=== PATIENT | female | born 1960 | race Caucasian/White ===

== ENCOUNTER → 2016-04-08 | Outpatient (CLI) | payer OTHER | LOC: M WUC 10:46 | PROVIDERS: ATTEND Family Medicine | DX: Z11.59 Encounter for screening for other viral diseases (principal) ==

== ENCOUNTER → 2016-05-07 | Outpatient (CLI) | payer OTHER ==
[~2016-05-07] MED LIST: CLAR1TAB2 PO; LOSA100T36 PO; MOME50SP; MULT1TAB10 PO; TRAM50TA2 PO
[2016-05-07 16:45] LABS: CREATININE FOR GFR 1.08 MG/DL (0.55-1.02); GLOMERULAR FILTRATION RATE 55.5 (>51); PHOSPHORUS LEVEL 3.7 MG/DL (2.5-4.9); POTASSIUM SERUM 4.5 MEQ/L (3.5-5.1)
== END ==
LOC: M WUC 13:55
PROVIDERS: ATTEND Dentist Oral and Maxillofacial Surgery
DX: Z01.812 Encounter for preprocedural laboratory examination (principal)

== ENCOUNTER → 2016-05-15 | Day surgery (SDC) | payer OTHER ==
[~2016-05-15] VITALS: Ht 162.6 cm; Wt 93.0 kg
[~2016-05-15] MED LIST changes: +AMOX500C PO; +HYDR-3713 PO; +HYDROmorphone HCL 2 MG/ML 1ML VIAL (J1170) As Ordered ONE; +IBUP600T26 PO; +LIDOCAINE 2% INJ 100 MG/5 ML SDV (FOR ANES.) As Ordered ONE; +LIDOCAINE 2% W/ EPINEPHRINE 1.7 ML DENTAL INJ As Ordered ONE; +LR 1,000 ML IV SCH; +METOCLOPRAMIDE INJ 10MG/2ML VIAL (J2765) IV PRN; +MIDAZOLAM INJ 2 MG/2 ML VIAL (J2250) As Ordered ONE; +OMEP40CA2 PO; +ONDANSETRON 4MG/2ML VIAL (J2405) As Ordered ONE; +ONDANSETRON 4MG/2ML VIAL (J2405) IV PRN; +PERCOCET 5MG/325MG TAB PO PRN; +PHENYLEPHRINE 0.5% NASAL SPRAY 15 ML As Ordered ONE; +PROPOFOL 200 MG/20 ML VIAL As Ordered ONE; +ROCURONIUM BROMIDE 50 MG/5 ML VIAL As Ordered ONE; +SUCCINYLCHOLINE 100 MG/5 ML SYRINGE (J0330) As Ordered ONE; +dexameTHASONE 4 MG/ML 1ML VIAL (J1100) As Ordered ONE; +fentaNYL 100 MCG/2 ML INJECTION (J3010) As Ordered ONE; +fentaNYL 100 MCG/2 ML INJECTION (J3010) IV PRN
[2016-05-15 16:30] VITALS: BP 170/88
--- NOTE | 2016-05-17 09:04 | RO ---
DATE OF PROCEDURE: 05/15/2016 PREOPERATIVE DIAGNOSES: Bony impacted tooth #17, fully bony. Malposed tooth # 18 and a dentigerous cyst associated with impacted tooth #17, as well as in line with tooth #18. POSTOPERATIVE DIAGNOSES: Bony impacted tooth #17, fully bony. Malposed tooth #18 and a dentigerous cyst associated with impacted tooth #17, as well as in line with tooth #18. PROCEDURE: 1. Surgical removal of tooth #18. 2. Coronectomy of impacted tooth #17. 3. Enucleation of a cystic lesion in the area between 17 and 18. SURGEON: Alfa Castellon DDS ARMED GUARD: ANESTHESIA: General nasal endotracheal. INDICATIONS: The patient is a 55-year-old female referred by the general dentist for evaluation and treatment of a cyst of the left mandible associated with impacted tooth 17 and affecting adjacent tooth #18. The patient had previously had an intraoral biopsy of the lesion in the office setting, which was noted to be a dentigerous cyst. The patient is now for definitive treatment of the same. NARRATIVE SUMMARY: The patient was brought to the operating room (OR) per anesthesia and placed supine upon the OR table wherein general nasal endotracheal anesthetic was undertaken without difficulty. After the usual sterile prep and drape for an intraoral procedure was performed, a throat pack was placed. 2% Xylocaine with 1:100,000 epinephrine for approximately 1.5 mL was infiltrated to the area of the left mandible in the area between 17 and 18. A #15-scalpel blade was then used to make a full thickness reversal buccal hockey stick mucoperiosteal incision and carried from the left external oblique ridge forward to the area of the second premolar. A full thickness flap was then raised with the periosteal elevator exposing the buccal bone support. Tooth #18 was then elevated and delivered. The crown and the distal root was removed. The mesial root fractured and was secondarily removed with elevator technique. The area was copiously examined and buccal osteotomy was performed as necessary for exposure of the remaining cystic lesion around the impacted tooth 17 in line forward and underneath the area of tooth 18. The cyst was noted to be fairly thin walled and enucleated with curettes without major difficulty. The area of the impacted tooth crown was then exposed with Moraes drill and copious sterile saline carefully. The area was copiously irrigated as this was performed. The tooth was lying very deeply in the bone with an anterior and inferior Clint and therefore after evaluation of the area and the amount of bone that was necessary to remove, it was felt necessary to just perform a coronectomy of the tooth to avoid the damage to the inferior canal, as well as potential for risk of fracture. This was all discussed previously with the patient preoperatively as well. The tooth crown was then sectioned with the Moraes drill and with copious saline irrigation it was removed. The area was copiously irrigated and was again curetted and all areas of remaining cyst were removed and there was no obvious evidence of exposure of the inferior alveolar canal or evidence of any bone fractures. The lingual cortex was noted to be intact. At the termination of the procedure, the area was examined after copious sterile irrigation and closed with Gelfoam and #3-0 gut interrupted sutures for hemostasis. At the termination of the procedure, the oropharynx was inspected and found to be free of debris. The throat pack was removed. The patient was awakened per anesthesia. The estimated blood loss (EBL) was approximately 30 mL. Fluids of 1300 mL in crystalloid solution. The needle and sponge count was correct. SPECIMENS: The teeth were sent for identification only, crown of tooth #17, as well as the whole tooth of #18. The cystic lesion was sent for microscopic analysis to pathology. DISPOSITION: The patient was extubated in the operating room and taken to the recovery room breathing spontaneously in stable condition. ANGELICA
== END | disposition home or self-care (01) ==
LOC: M SDC 10:27
PROVIDERS: ATTEND Dentist Oral and Maxillofacial Surgery
DX: K01.1 Impacted teeth (principal); M26.30 Unspecified anomaly of tooth position of fully erupted tooth or teeth; K09.0 Developmental odontogenic cysts; I10 Essential (primary) hypertension; K21.9 Gastro-esophageal reflux disease without esophagitis; Z78.0 Asymptomatic menopausal state; Z98.51 Tubal ligation status; Z87.891 Personal history of nicotine dependence; Z79.899 Other long term (current) drug therapy
CPT/HCPCS: 88300; 88305; D7240; D7251; D7451; J0330; J1100; J1170; J2250; J2405; J3010

== ENCOUNTER → 2016-08-24 | Outpatient (CLI) | payer OTHER ==
[~2016-08-24] MED LIST changes: -HYDROmorphone HCL 2 MG/ML 1ML VIAL (J1170) As Ordered ONE; -LIDOCAINE 2% INJ 100 MG/5 ML SDV (FOR ANES.) As Ordered ONE; -LIDOCAINE 2% W/ EPINEPHRINE 1.7 ML DENTAL INJ As Ordered ONE; -LR 1,000 ML IV SCH; -METOCLOPRAMIDE INJ 10MG/2ML VIAL (J2765) IV PRN; -MIDAZOLAM INJ 2 MG/2 ML VIAL (J2250) As Ordered ONE; -ONDANSETRON 4MG/2ML VIAL (J2405) As Ordered ONE; -ONDANSETRON 4MG/2ML VIAL (J2405) IV PRN; -PERCOCET 5MG/325MG TAB PO PRN; -PHENYLEPHRINE 0.5% NASAL SPRAY 15 ML As Ordered ONE; -PROPOFOL 200 MG/20 ML VIAL As Ordered ONE; -ROCURONIUM BROMIDE 50 MG/5 ML VIAL As Ordered ONE; -SUCCINYLCHOLINE 100 MG/5 ML SYRINGE (J0330) As Ordered ONE; -dexameTHASONE 4 MG/ML 1ML VIAL (J1100) As Ordered ONE; -fentaNYL 100 MCG/2 ML INJECTION (J3010) As Ordered ONE; -fentaNYL 100 MCG/2 ML INJECTION (J3010) IV PRN
[2016-08-24 10:53] LABS: BASO % 1.1 % (0.0-1.0); EOS # 0.1 K/mm3 (0.0-0.50); EOS % 1.8 % (0.0-3.0); LARGE UNSTAINED CELL # 0.1 K/mm3 (0.0-0.4); LARGE UNSTAINED CELL % 2.5 % (0.0-4.0); LYMPH # 1.4 K/mm3 (1.5-4.5); LYMPH % 32.8 % (24.0-44.0); MEAN CORPUSCULAR HEMOGLOBIN 34.4 pg (27.0-33.0); MEAN CORPUSCULAR HGB CONC 34.8 g/dl (32.0-36.5); MEAN CORPUSCULAR VOLUME 98.9 fl (80.0-96.0); MONO # 0.3 K/mm3 (0.0-0.8); MONO % 8.3 % (0.0-5.0); NEUTROPHILS # 2.2 K/mm3 (1.8-7.7); NEUTROPHILS % 53.6 % (36.0-66.0); PLATELET COUNT, AUTOMATED 184 k/mm3 (150-450)
[2016-08-24 12:23] LABS: ALBUMIN 3.9 GM/DL (3.2-5.2); ALBUMIN/GLOBULIN RATIO 1.39 (1.00-1.93); BILIRUBIN,TOTAL 0.4 MG/DL (0.2-1.0); CALCIUM LEVEL 8.7 MG/DL (8.5-10.1); CREATININE FOR GFR 1.03 MG/DL (0.55-1.02); GLOMERULAR FILTRATION RATE 58.6 (>51); POTASSIUM SERUM 4.4 MEQ/L (3.5-5.1); TOTAL PROTEIN 6.7 GM/DL (6.4-8.2)
== END ==
LOC: M WUC 08:35
PROVIDERS: ATTEND Family Medicine
DX: I10 Essential (primary) hypertension (principal)

== ENCOUNTER → 2016-12-21 | Outpatient (CLI) | payer OTHER ==
[~2016-12-21] MED LIST changes: +IBUP-1022 PO; -IBUP600T26 PO
[2016-12-21 13:40] LABS: BASO % 0.9 % (0.0-1.0); EOS # 0.1 10^3/uL (0.0-0.50); EOS % 1.1 % (0.0-3.0); IMMATURE GRANULOCYTE % 0.2 % (0-0); LYMPH # 1.4 10^3/uL (1.5-4.5); LYMPH % 31.4 % (24.0-44.0); MEAN CORPUSCULAR HEMOGLOBIN 33.9 pg (27.0-33.0); MEAN CORPUSCULAR HGB CONC 34.1 g/dl (32.0-36.5); MEAN CORPUSCULAR VOLUME 99.5 fl (80.0-96.0); MONO # 0.5 10^3/uL (0.0-0.8); MONO % 10.8 % (0.0-5.0); NEUTROPHILS # 2.5 10^3/uL (1.8-7.7); NEUTROPHILS % 55.6 % (36.0-66.0); PLATELET COUNT, AUTOMATED 156 10^3/uL (150-450); RED CELL DISTRIBUTION WIDTH 11.8 % (11.5-14.5); WHITE BLOOD COUNT 4.6 10^3/uL (4.0-10.0)
[2016-12-21 18:15] LABS: ALBUMIN 3.9 GM/DL (3.2-5.2); ALBUMIN/GLOBULIN RATIO 1.11 (1.00-1.93); BILIRUBIN,TOTAL 0.5 MG/DL (0.2-1.0); CALCIUM LEVEL 6.1 MG/DL (8.5-10.1); CREATININE FOR GFR 1.19 MG/DL (0.55-1.02); GLOMERULAR FILTRATION RATE 49.6 (>51); TOTAL PROTEIN 7.4 GM/DL (6.4-8.2)
[2016-12-21 18:53] LABS: POTASSIUM SERUM 6.4 MEQ/L (3.5-5.1)
== END ==
LOC: M WUC 11:43
PROVIDERS: ATTEND Family Medicine
DX: R11.2 Nausea with vomiting, unspecified (principal)

== ENCOUNTER → 2016-12-22 | Outpatient (CLI) | payer OTHER ==
[2016-12-22 20:29] LABS: CREATININE FOR GFR 1.21 MG/DL (0.55-1.02); GLOMERULAR FILTRATION RATE 48.7 (>51)
[2016-12-22 21:13] LABS: CALCIUM LEVEL 8.9 MG/DL (8.5-10.1); POTASSIUM SERUM 4.1 MEQ/L (3.5-5.1)
== END ==
LOC: M WUC 17:37
PROVIDERS: ATTEND Family Medicine
DX: E87.5 Hyperkalemia (principal); E83.50 Unspecified disorder of calcium metabolism

== ENCOUNTER → 2017-01-18 | Outpatient (CLI) | payer OTHER ==
--- NOTE | 2017-01-18 10:13 | REPMRS ---
Patient History The patient states she had a clinical breast exam in 11/22 Patient is postmenopausal. No known family history of cancer. Digital Woman Screen Mammo: January 18, 2017 - Exam #: [id number] Bilateral CC and MLO view(s) were taken. Technologist: Cherrie Melgar, Technologist Prior study comparison: December 10, 2015, digital woman screen mammo performed at [facility] to [facility]. November 05, 2014, digital woman screen mammo performed at [facility] to [facility]. FINDINGS: There are scattered fibroglandular densities. There has been no change in the appearance of the mammogram from the prior studies. There is a mild amount of residual fibroglandular tissue which is fairly symmetric. There is no interval development of dominant mass, architectural distortion, or clustered microcalcification suggestive of malignancy. ASSESSMENT: BI-RADS/ACR category 1 mammogram. Negative. Recommendation Routine screening mammogram in 1 year (for women over age 40). This mammogram was interpreted with the aid of an FDA-approved computer-aided dectection system. Electronically Signed By: Jim Le MD 01/18/17 1012
== END ==
LOC: M WHC 09:39
PROVIDERS: ATTEND Family Medicine
DX: Z12.31 Encounter for screening mammogram for malignant neoplasm of breast (principal); Z78.0 Asymptomatic menopausal state

== ENCOUNTER 2017-01-21 09:25 | Emergency (ER) | payer OTHER ==
[~2017-01-21] VITALS: Ht 162.6 cm; Wt 96.9 kg
[2017-01-21] MEDS ORDERED: AMOX875T PO (09:35)
[2017-01-21] MEDS ORDERED: ALBUTEROL SULFATE 2.5 MG/0.5 ML INH NEB SOLN NEB ONE (10:15)
--- NOTE | 2017-01-21 10:45 | REP ---
Clinical: Cough and shortness of breath . Comparison: 06/24/2005 . Technique: PA and lateral. Findings: The mediastinum and cardiac silhouette are normal. Perihilar and left infrahilar atelectasis cannot be excluded. No focal consolidation, effusion, or pneumothorax. The skeletal structures are intact and normal. Impression: 1. Perihilar atelectasis suggested. Signed by Luis Armando Olmedo MD 01/21/2017 10:37 A
[2017-01-21] MEDS ORDERED: DOXY100C37 PO ×2 (11:17→11:23)
[2017-01-21] MEDS ORDERED: PRED20TA PO ×2 (11:18→11:23)
[2017-01-21] MEDS ORDERED: PROAAER10 INH ×2 (11:19→11:23)
[2017-01-21 11:28] VITALS: BP 165/78
== END 2017-01-21 11:30 | disposition home or self-care (01) ==
LOC: M ED 09:25
DX: J20.9 Acute bronchitis, unspecified (principal); I10 Essential (primary) hypertension; K21.9 Gastro-esophageal reflux disease without esophagitis; Z79.899 Other long term (current) drug therapy; Z87.891 Personal history of nicotine dependence

== ENCOUNTER 2017-03-10 18:33 | Emergency (ER) | payer OTHER ==
[2017-03-10] MEDS: DERMABOND TOPICAL SKIN ADHESIVE TOP (22:16)
== END 2017-03-10 23:13 | disposition home or self-care (01) ==
LOC: M ED 18:33
DX: S61.011A Laceration without foreign body of right thumb without damage to nail, initial encounter (principal); W25.XXXA Contact with sharp glass, initial encounter; Y92.009 Unspecified place in unspecified non-institutional (private) residence as the place of occurrence of the external cause; Y93.G1 Activity, food preparation and clean up; Y99.8 Other external cause status; I10 Essential (primary) hypertension; K21.9 Gastro-esophageal reflux disease without esophagitis; Z79.899 Other long term (current) drug therapy; Z98.890 Other specified postprocedural states; Z87.891 Personal history of nicotine dependence
CPT/HCPCS: 73140

== ENCOUNTER 2017-07-20 20:45 | Emergency (ER) | payer OTHER ==
[2017-07-20] MEDS: predniSONE 20 MG TAB PO (21:46)
[2017-07-20] MEDS: ALBUTEROL SULFATE 2.5 MG/0.5 ML INH NEB SOLN NEB (22:03)
== END 2017-07-20 22:40 | disposition home or self-care (01) ==
LOC: M ED 20:45
DX: J20.9 Acute bronchitis, unspecified (principal); I10 Essential (primary) hypertension; K21.9 Gastro-esophageal reflux disease without esophagitis; Z79.899 Other long term (current) drug therapy; Z87.891 Personal history of nicotine dependence
CPT/HCPCS: 71046

== ENCOUNTER → 2018-07-07 | Outpatient (CLI) | payer OTHER ==
[~2018-07-07] MED LIST changes: +ALBU83IN INH; +AMOX875T PO; +DOXY100C37 PO; -LOSA100T36 PO; +LOSA100T50 PO; +MUCI600T37 PO; +PRED20TA PO; +PROAAER10 INH; +TESS100C PO
--- NOTE | 2018-07-07 11:21 | REPMRS ---
Patient History The patient states she has not had a clinical breast exam in over a year. No known family history of cancer. 3D TOMOSYNTHESIS WAS PERFORMED. Digital Woman Screen Mammo: July 07, 2018 - Exam #: [id number] Bilateral CC and MLO view(s) were taken. Technologist: Cherrie Melgar, Technologist Prior study comparison: January 18, 2017, digital woman screen mammo performed at [facility]. December 10, 2015, digital woman screen mammo performed at [facility]. FINDINGS: There are scattered fibroglandular densities. There is no evidence of cancer on this mammogram. Small foci of fat necrosis are seen in the lateral right breast. Assessment: BI-RADS/ACR category 2 mammogram. Benign Findings. Recommendation Routine screening mammogram of both breasts in 1 year (for women over age 40). This mammogram was interpreted with the aid of an FDA-approved computer-aided dectection system. Electronically Signed By: Jim Le MD 07/07/18 1121
== END ==
LOC: M WHC 07:42
PROVIDERS: ATTEND Family Medicine
DX: Z12.31 Encounter for screening mammogram for malignant neoplasm of breast (principal)

== ENCOUNTER → 2018-09-21 | Outpatient (REF) | payer OTHER ==
[~2018-09-21] MED LIST changes: +FLON1SPR; +GNP1000T11 PO; +MIGRTAB PO; +VITATAB73 PO; +vitamin a PO
== END ==
LOC: M SFHCLERA 11:07
PROVIDERS: ATTEND Nurse Practitioner Family
DX: J02.9 Acute pharyngitis, unspecified (principal)

== ENCOUNTER 2018-10-03 06:35 | Day surgery (SDC) | payer OTHER ==
[~2018-10-03] VITALS: Ht 162.6 cm; Wt 87.1 kg
[2018-10-03] MEDS ORDERED: NS 1,000 ML IV ONE (07:45)
[2018-10-03] MEDS ORDERED: PROPOFOL 200 MG/20 ML VIAL As Ordered ONE ×2 (08:02→08:28)
--- NOTE | 2018-10-03 08:35 | ROOR ---
Patient Name: Jordan Costa Procedure Date: 10/03/2018 7:27 AM Date of : 1960 Age: 58 Room: [facility] Gender: Female Note Status: Finalized Procedure: Colonoscopy Indications: Screening for colorectal malignant neoplasm Providers: Tyler PAGE MD Referring MD: Angie Gupta MD Requesting Provider: Medicines: Monitored Anesthesia Care Complications: No immediate complications. Procedure: Pre-Anesthesia Assessment: - The heart rate, respiratory rate, oxygen saturations, blood pressure, adequacy of pulmonary ventilation, and response to care were monitored throughout the procedure. The Colonoscope was introduced through the anus and advanced to the terminal ileum, with identification of the appendiceal orifice and IC valve. The colonoscopy was performed without difficulty. The patient tolerated the procedure well. The quality of the bowel preparation was good. Findings: The perianal and digital rectal examinations were normal. Four sessile polyps were found in the ascending colon and cecum. The polyps were 5 to 6 mm in size. These polyps were removed with a cold snare. Resection and retrieval were complete. A 8 mm polyp was found in the splenic flexure. The polyp was sessile. The polyp was removed with a piecemeal technique using a cold snare. Resection and retrieval were complete. A 5 mm polyp was found in the sigmoid colon. The polyp was sessile. The polyp was removed with a cold snare. Resection and retrieval were complete. Mild sigmoid diverticulosis and small internal hemorrhoids. No additional abnormalities were found on retroflexion. Impression: - Four 5 to 6 mm polyps in the ascending colon and in the cecum, removed with a cold snare. Resected and retrieved. - One 8 mm polyp at the splenic flexure, removed piecemeal using a cold snare. Resected and retrieved. - One 5 mm polyp in the sigmoid colon, removed with a cold snare. Resected and retrieved. - Mild sigmoid diverticulosis and small internal hemorrhoids. Recommendation: - Repeat colonoscopy in 3 years for surveillance. - Telephone endoscopist for pathology results in 2 weeks. Tyler Page MD Tyler PAGE MD 10/03/2018 8:34:51 AM Electronically signed by Tyler PAGE MD Number of Addenda: 0 Note Initiated On: 10/03/2018 7:27 AM Estimated Blood Loss: Estimated blood loss: none.
[2018-10-03 09:00] VITALS: BP 159/87
== END 2018-10-03 09:04 | disposition home or self-care (01) ==
LOC: M OPP 06:35
PROVIDERS: ATTEND Internal Medicine Gastroenterology
DX: Z12.11 Encounter for screening for malignant neoplasm of colon (principal); D12.2 Benign neoplasm of ascending colon; D12.0 Benign neoplasm of cecum; D12.3 Benign neoplasm of transverse colon; D12.5 Benign neoplasm of sigmoid colon; K57.30 Diverticulosis of large intestine without perforation or abscess without bleeding; K64.8 Other hemorrhoids; G43.909 Migraine, unspecified, not intractable, without status migrainosus; I10 Essential (primary) hypertension; K21.9 Gastro-esophageal reflux disease without esophagitis; R01.1 Cardiac murmur, unspecified; Z78.0 Asymptomatic menopausal state; Z87.891 Personal history of nicotine dependence; Z79.899 Other long term (current) drug therapy

== ENCOUNTER → 2019-10-23 | Outpatient (CLI) | payer OTHER ==
[~2019-10-23] MED LIST changes: -OMEP40CA2 PO; +OMEP40CA97 PO
--- NOTE | 2019-11-16 10:53 | REPMRS ---
Patient History The patient states she had a clinical breast exam in October 2019. Patient is postmenopausal. No known family history of cancer. Digital Woman Screen Mammo: October 23, 2019 - Exam #: [id number] Bilateral CC and MLO view(s) were taken. Technologist: Ivelisse Griffith Technologist Prior study comparison: July 07, 2018, bilateral digital woman screen mammo performed at [facility]. January 18, 2017, digital woman screen mammo performed at [facility]. December 10, 2015, digital woman screen mammo performed at [facility]. FINDINGS: The breast tissue is almost entirely fat. The Volpara volumetric breast density category is: A. There has been no change in the appearance of the mammogram from the prior studies. There is no interval development of dominant mass, architectural distortion, or grouped microcalcification typical of malignancy. 3-D tomosynthesis shows no additional findings. Assessment: BI-RADS/ACR category 1 mammogram. Negative Mammogram. Recommendation Routine screening mammogram of both breasts in 1 year (for women over age 40). This patient's Lifetime Breast Cancer RIsk is estimated at 6.4 %. This mammogram was interpreted with the aid of an FDA-approved computer-aided dectection system. Electronically Signed By: Haresh Silveira MD 11/16/19 [id number]
== END ==
LOC: M WHC 17:45
PROVIDERS: ATTEND Nurse Practitioner
DX: Z12.31 Encounter for screening mammogram for malignant neoplasm of breast (principal); Z78.0 Asymptomatic menopausal state

== ENCOUNTER → 2020-07-31 | Outpatient (CLI) | payer OTHER ==
[2020-07-31 11:26] LABS: BASO % 0.8 % (0.0-1.0); EOS # 0.1 10^3/uL (0.0-0.5); EOS % 2.4 % (0.0-3.0); HEMATOCRIT 39.1 % (36.0-47.0); HEMOGLOBIN 13.1 g/dl (12.0-15.5); LYMPH # 1.5 10^3/uL (1.5-5.0); LYMPH % 30.6 % (24.0-44.0); MEAN CORPUSCULAR HEMOGLOBIN 33.9 pg (27.0-33.0); MEAN CORPUSCULAR HGB CONC 33.5 g/dl (32.0-36.5); MONO # 0.5 10^3/uL (0.0-0.8); MONO % 10.2 % (2.0-8.0); NEUTROPHILS # 2.7 10^3/uL (1.5-8.5); PLATELET COUNT, AUTOMATED 159 10^3/uL (150-450); RED BLOOD COUNT 3.87 10^6/uL (4.00-5.40); WHITE BLOOD COUNT 4.9 10^3/uL (4.0-10.0)
[2020-07-31 12:41] LABS: ALBUMIN 4.1 GM/DL (3.2-5.2); BILIRUBIN,TOTAL 0.5 MG/DL (0.2-1.0); CALCIUM LEVEL 9.6 MG/DL (8.8-10.2); CREATININE FOR GFR 1.2 MG/DL (0.55-1.30); FREE T4 0.91 NG/DL (0.76-1.46); GLOMERULAR FILTRATION RATE 48.5 (>45); POTASSIUM SERUM 4.6 MEQ/L (3.5-5.1); THYROID STIMULATING HORMONE 1.64 uIU/ML (0.358-3.740); TOTAL PROTEIN 7.5 GM/DL (6.4-8.2)
== END ==
LOC: M LAB 10:49
PROVIDERS: ATTEND Internal Medicine Gastroenterology
DX: R11.2 Nausea with vomiting, unspecified (principal)

== ENCOUNTER → 2020-07-31 | Outpatient (REF) | payer OTHER | LOC: M LAB REF 17:57 | PROVIDERS: ATTEND Internal Medicine Gastroenterology | DX: R11.2 Nausea with vomiting, unspecified (principal) ==

== ENCOUNTER → 2020-08-10 | Outpatient (REF) | payer OTHER ==
[2020-08-10 17:40] LABS: APPEARANCE, URINE CLEAR (CLEAR); BACTERIA, URINE AUTO NEGATIVE (NEGATIVE); BILIRUBIN, URINE AUTO NEGATIVE (NEGATIVE); BLOOD, URINE BLOOD 3+ (NEGATIVE); COLOR, URINE STRAW (YELLOW); GLUCOSE, URINE (UA) AUTO NEGATIVE (NEGATIVE); KETONE, URINE AUTO NEGATIVE (NEGATIVE); LEUKOCYTE ESTERASE, URINE AUTO 2+ (NEGATIVE); NITRITE, URINE AUTO NEGATIVE (NEGATIVE); PROTEIN, URINE AUTO NEGATIVE (NEGATIVE); RBC, URINE AUTO 1 /HPF (0-3); SPECIFIC GRAVITY URINE AUTO 1.004 (1.002-1.035); SQUAMOUS EPITHELIAL CELL UR AU 0 /HPF (0-6); UROBILINOGEN, URINE AUTO 0.2 mg/dL (0.0-2.0); WBC, URINE AUTO 31 /HPF (0-3)
== END ==
LOC: M LAB REF 17:12
PROVIDERS: ATTEND Physician Assistant Medical
DX: R30.0 Dysuria (principal)

== ENCOUNTER → 2020-09-16 | Outpatient (CLI) | payer OTHER ==
[~2020-09-16] MED LIST changes: -DOXY100C37 PO; +DOXY1CAP62 PO; +OMEP40CA4 PO; -OMEP40CA97 PO
--- NOTE | 2020-09-17 08:06 | REP ---
INDICATION: GB DZ NAUSEA. COMPARISON: Comparison sonography 11/21/2019.. TECHNIQUE/RADIOTRACER AND DOSE: 6.6 mCi of Technetium-99m mebrofenin was injected and sequential anterior images are acquired. 65 minutes after the mebrofenin injection, the patient consumed 8 ounces Ensure and an additional 60 minutes of imaging was acquired. Regions of interest are plotted around the gallbladder. FINDINGS: The initial hepatocellular parenchymal uptake phase is normal and homogeneous. Intra- and extra-hepatic bile ducts are labeled by the 10-minute image. The gallbladder is first labeled on the 20-minute image. There is normal washout from the liver parenchyma into the gallbladder and small intestine on subsequent images. The gallbladder ejection fraction is 66%. Values greater than 35% are considered normal with this technique. IMPRESSION: Normal hepatobiliary scan and normal gallbladder ejection fraction. <Electronically signed by Haresh Silveira > 09/17/20 0802
== END ==
LOC: M RAD 07:42
PROVIDERS: ATTEND Internal Medicine Gastroenterology
DX: K82.9 Disease of gallbladder, unspecified (principal); R11.2 Nausea with vomiting, unspecified
CPT/HCPCS: 78227; A9537

== ENCOUNTER 2020-10-25 09:36 | Day surgery (SDC) | payer OTHER ==
[~2020-10-25] VITALS: Ht 162.6 cm; Wt 87.5 kg
[~2020-10-25 09:36] MED LIST changes: +CETI5SOL3 PO; +NS 1,000 ML IV ONE
[2020-10-25] MEDS ORDERED: DICY10CA13 PO (10:01)
[2020-10-25] MEDS ORDERED: RA K500C PO (10:01)
[2020-10-25] MEDS ORDERED: VITATAB47 PO (10:01)
[2020-10-25] MEDS ORDERED: propofoL 200 MG/20 ML VIAL As Ordered ONE (11:05)
[2020-10-25] MEDS ORDERED: LIDOCAINE 2% JELLY 5ML TUBE As Ordered ONE (11:05)
[2020-10-25] MEDS ORDERED: fentaNYL 100 MCG/2 ML INJECTION (J3010) As Ordered ONE (11:06)
--- NOTE | 2020-10-25 11:20 | ROOR ---
Patient Name: Jordan Costa Procedure Date: 10/25/2020 11:01 AM Date of : 1960 Age: 60 Room: [facility] Gender: Female Note Status: Finalized Procedure: Upper GI endoscopy Indications: Abdominal pain, Nausea Providers: Tyler Montano MD Referring MD: SANTOS JONES DO Requesting Provider: Medicines: Monitored Anesthesia Care Complications: No immediate complications. Procedure: Pre-Anesthesia Assessment: - The heart rate, respiratory rate, oxygen saturations, blood pressure, adequacy of pulmonary ventilation, and response to care were monitored throughout the procedure. The Endoscope was introduced through the mouth, and advanced to the second part of duodenum. The upper GI endoscopy was accomplished without difficulty. The patient tolerated the procedure well. Findings: The examined esophagus was normal. Scattered mild inflammation characterized by erythema and granularity was found in the gastric antrum. Biopsies were taken with a cold forceps for histology. The exam of the stomach was otherwise normal. The examined duodenum was normal. Impression: - Normal esophagus. - Gastritis. Biopsied. - Normal examined duodenum. Recommendation: - Use Prilosec (omeprazole) 40 mg PO daily. - Telephone endoscopist for pathology results in 2 weeks. Procedure Code(s): --- Professional --- 34410, Esophagogastroduodenoscopy, flexible, transoral; with biopsy, single or multiple Diagnosis Code(s): --- Professional --- R11.0, Nausea R10.9, Unspecified abdominal pain K29.70, Gastritis, unspecified, without bleeding CPT copyright 2019 [employer]. All rights reserved. The codes documented in this report are preliminary and upon tobacco sorter review may be revised to meet current compliance requirements. Tyler Montano MD Tyler Montano MD 10/25/2020 11:20:09 AM Electronically signed by Tyler Montano MD Number of Addenda: 0 Note Initiated On: 10/25/2020 11:01 AM Estimated Blood Loss: Estimated blood loss: none.
[2020-10-25 11:43] VITALS: BP 159/75
== END 2020-10-25 11:45 | disposition home or self-care (01) ==
LOC: M OPP 09:36
PROVIDERS: ATTEND Internal Medicine Gastroenterology
DX: K29.70 Gastritis, unspecified, without bleeding (principal); R11.0 Nausea; R10.9 Unspecified abdominal pain; Z79.899 Other long term (current) drug therapy; Z88.8 Allergy status to other drugs, medicaments and biological substances; Z80.41 Family history of malignant neoplasm of ovary
CPT/HCPCS: 43239; 88305; J3010

== ENCOUNTER → 2020-12-02 | Outpatient (CLI) | payer OTHER ==
[~2020-12-02] MED LIST changes: +DICY10CA13 PO; -NS 1,000 ML IV ONE; +RA K500C PO; +VITATAB47 PO
--- NOTE | 2020-12-02 09:30 | REP ---
INDICATION: ENCTR SCREEN MAMMO FOR MALIGNANT NEOPLASM OF BREAST. COMPARISON: Multiple TECHNIQUE: Digital screening mammography was carried out bilaterally in the CC and MLO projections using both 2D and 3D modalities and compared to the prior exams By history, the patient has no complaints of a palpable breast abnormality or other significant breast complaints. FINDINGS: The breasts are unchanged in size and shape. Scattered dense heterogenous fibroglandular elements are again seen bilaterally. In the upper outer quadrant of the left breast there is a potential pepe asymmetric density. No other suspicious features are seen in either breast. There are stable benign calcifications. There is no skin thickening or nipple retraction. The Volpara volumetric breast density pattern is b. IMPRESSION: BIRADS/ACR category 0 mammogram. There is a potential pepe asymmetric density seen in the left breast upper outer quadrant for which diagnostic digital DBT spot compression views are recommended in the CC and MLO projections along with diagnostic ultrasonography if necessary. This patient's Tyrer-Cuzick lifetime breast cancer risk assessment score is 6.2%. This mammogram was interpreted with the aid of an FDA-approved computer-aided detection system. The patient states she had a clinical breast exam in October 2020. The patient letter being requested is M0. RECOMMENDATION: As above <Electronically signed by Mario Sofia > 12/02/20 1792
--- NOTE | 2020-12-02 09:44 | DEXAMM ---
INDICATION: SCREENING FOR BONE DENSITY. COMPARISON: None. TECHNIQUE: Bone density was measured using dual-energy x-ray absorptionmetry (DEXA). FINDINGS: AP SPINE L1-L4 BMD 1.257 g/cm2 Young Adult T-Score 0.5 Age Matched Z-Score 1.9. LT FEMUR, TOTAL BMD 1.089 g/cm2 Young Adult T-Score 0.6 Age Matched Z-Score 1.7. LT NECK BMD 1.017 g/cm2 Young Adult T-Score -0.2 Age Matched Z-Score 1.2. RT FEMUR, TOTAL BMD 1.111 g/cm2 Young Adult T-Score 0.8 Age Matched Z-Score 1.9. RT NECK BMD 0.971 g/cm2 Young Adult T-Score -0.5 Age Matched Z-Score 0.9. IMPRESSION: There is normal bone density of the spine. There is normal bone density of the left hip. There is normal bone density of the right hip. FOLLOW-UP: Recommendation for the next bone density exam: 5-10 years.. <Electronically signed by Haresh Silveira > 12/02/20 0919
== END ==
LOC: M WHC 08:24
PROVIDERS: ATTEND Family Medicine
DX: R92.2 Inconclusive mammogram (principal); Z13.820 Encounter for screening for osteoporosis

== ENCOUNTER → 2021-08-27 | Outpatient (REF) | payer OTHER ==
[~2021-08-27] MED LIST changes: +ALBU2.5V10 INH; -ALBU83IN INH; +DOXY-443 PO; -DOXY1CAP62 PO; +LOSA100T45 PO; -LOSA100T50 PO; -MOME50SP; +NASO50SP3
== END ==
LOC: M SFHCDERM 17:17
PROVIDERS: ATTEND Nurse Practitioner Family
DX: L57.0 Actinic keratosis (principal); D48.9 Neoplasm of uncertain behavior, unspecified

== ENCOUNTER 2023-11-25 07:19 | Day surgery (SDC) | payer MEDICARE, OTHER ==
[~2023-11-25] VITALS: Ht 162.6 cm; Wt 81.5 kg
[~2023-11-25 07:19] MED LIST changes: +DICY-61 PO; -DICY10CA13 PO; +DOXY-323 PO; -DOXY-443 PO; -LOSA100T45 PO; +LOSA100T46 PO; +NS 1,000 ML IV ONE; +OSTETAB2 PO
[2023-11-25] MEDS ORDERED: propofoL 200 MG/20 ML VIAL As Ordered ONE (09:37)
[2023-11-25 09:56] VITALS: TEMP 96.8
[2023-11-25 10:15] VITALS: BP 140/67; O2SAT 98
== END 2023-11-25 10:21 | disposition home or self-care (01) ==
LOC: M OPP 07:19
PROVIDERS: ATTEND Internal Medicine Gastroenterology
DX: Z86.010 Personal history of colon polyps (principal); D12.5 Benign neoplasm of sigmoid colon; K64.8 Other hemorrhoids; K57.30 Diverticulosis of large intestine without perforation or abscess without bleeding; Z87.891 Personal history of nicotine dependence; Z79.51 Long term (current) use of inhaled steroids; Z79.899 Other long term (current) drug therapy